=== PATIENT | female | born 1940 | race Caucasian/White ===

== ENCOUNTER 2017-08-25 18:20 | Emergency (ER) | payer MEDICARE, OTHER ==
[2017-08-25] MEDS ORDERED: Ondansetron 4 MG/2 ML SDV IVPUSH ONE (18:43)
[2017-08-25] MEDS ORDERED: Sodium Chloride 0.9% 1,000 ML IV SCH (18:45)
[2017-08-25] MEDS ORDERED: Prochlorperazine 10 MG Tab PO ONE (20:18)
--- NOTE | 2017-08-25 22:19 | ER ---
DATE SEEN: 08/25/2017 ADDENDUM: TIME SEEN: 2003 hours. CHIEF COMPLAINT: Vertigo. HISTORY OF PRESENT ILLNESS: This is a 76-year-old female, who came in because of dizziness, vertigo, and spinning symptoms started today, but has been on and off for several weeks along with some hearing loss and buzzing and tinnitus. Complains of mild headache. I saw her after Dr. Prasad had seen her, given her some fluids and Zofran. Her symptoms had somewhat improved. She did not have any headache when I saw her, chest pain, or shortness of breath. REVIEW OF SYSTEMS: All other systems were negative. PHYSICAL EXAMINATION: GENERAL: When I examined her, she was not in distress. She is comfortable. VITAL SIGNS: Her initial blood pressure was 179/76 and pulse was 77. EARS, NOSE, AND THROAT: Negative. CHEST: Clear. CARDIOVASCULAR: Normal. MENTAL STATUS: Alert. LABORATORY DATA: I reviewed the labs, which included CMP and troponin that were negative. I also reviewed the EKG personally that was normal sinus rhythm and a CT of the head, which I discussed with Dr. Paredes was really nonacute. IMPRESSION: Vertigo. PLAN: The patient will be sent home with Compazine 10 mg t.i.d. p.r.n. with instructions to see Echo Hallman at the clinic tomorrow or Tuesday and line out physical therapy to help with vertigo. She also has an ear, nose, and throat appointment in a month's time. If symptoms should get worse tonight, she should come back. Irlanda was advised to check a blood pressure in the clinic as well to make sure it is coming down. /[id number] ISABELLE/MODL
--- NOTE | 2017-08-26 08:23 | CT ---
INDICATION: Headache all over, more than usual, more dizziness, for two days, has gotten worse. CT HEAD WITHOUT CONTRAST: Serial contiguous 2.5 and 5 mm sections were obtained through the brain without contrast 08/25/2017 - no comparisons. Total exam DLP = 950.31 mGy-cm. Paranasal sinuses and mastoid air cells are well-aerated. The orbits appear to be intact. No cranial abnormality was seen. Calcifications are noted in the left vertebral artery. No shift of midline structures was seen. Ventricles are somewhat prominent, suggesting a mild degree of central atrophy. A tiny low density in the left basal ganglia may represent a small lacunar infarct. Calcification in the left basal ganglia is of questionable significance. In the right parasagittal anterior parietal lobe, there is suggestion of a minimal somewhat linear appearing calcification of questionable significance, possibly related to a tiny incidental meningioma. No definite acute intracranial abnormality was seen - no bleeding site or hematoma was noted. IMPRESSION: 1. No definite acute intracranial abnormality. 2. Possible tiny parasagittal right parietal meningioma. 3. 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 4. Calcification noted left vertebral artery. Report was called to Dr. Prasad at 1948 hours on 08/25/2017. [facility]
== END 2017-08-25 20:32 | disposition home or self-care (01) ==
LOC: FB.ED 18:20
DX: R42 Dizziness and giddiness (principal)
CPT/HCPCS: 36415; 70450; 80053; 82962; 84484; 85025; 96361; 96374; 99284; A9270; J2405; J7030; 99283

== ENCOUNTER 2019-10-03 14:33 | Emergency (ER) | payer MEDICARE ==
[2019-10-03] MEDS ORDERED: hydrALAZINE 20 MG/ML SDV IVPUSH STA (15:15)
[2019-10-03] MEDS ORDERED: Aspirin 81 MG Tab.Chew PO ONE (15:15)
[2019-10-03] MEDS ORDERED: Ondansetron 4 MG/2 ML SDV IVPUSH ONE ×2 (15:49→16:30)
[2019-10-03] MEDS ORDERED: Promethazine 25 MG/ML SDV IM ONE (16:29)
--- NOTE | 2019-10-03 16:29 | CR ---
INDICATION: Chest pain. CHEST ONE VIEW: Portable AP upright view of the chest 10/03/19 revealed the head to be normal in size and shape. The aorta is calcified minimally in the arch area. Overlying snap and EKG leads noted. No definite active infiltrate or effusion was seen. There is slight increased density at the left costophrenic angle of questionable significance - making it difficult to exclude minimal patchy pneumonia in that area. IMPRESSION: 1. No definite acute process, but difficult to exclude minimal patchy pneumonia at the left costophrenic angle. 2. ASD aorta. MTDD
--- NOTE | 2019-10-03 17:36 | EDM.PDOC ---
ED HPI GENERAL MEDICAL PROBLEM - General Chief Complaint: General Stated Complaint: DIZZY,DISORATION,UPSET STOMACH Time Seen by Provider: 10/03/19 14:35 Source of Information: Reports: Patient History Limitations: Reports: No Limitations - History of Present Illness INITIAL COMMENTS - FREE TEXT/NARRATIVE: Patient presented to the ED because of chest pressure for less than 5 minutes. there is no associated fever,chills,cough or cold except for some nasal congestion. She took OTC nasal spray which didn't help much. Generalized Pain Score (Numeric/FACES): 4 - Related Data Allergies Allergy/AdvReac Type Severity Reaction Status Date / Time No Known Allergies Allergy Verified 08/25/17 22:29 Home Meds: Home Meds Lisinopril 20 mg PO DAILY 08/25/17 [History] Simvastatin [Zocor] 20 mg PO BEDTIME 08/25/17 [History] amLODIPine [Norvasc] 2.5 mg PO DAILY 08/25/17 [History] metFORMIN [Glucophage] 1,000 mg PO BIDMEALS 08/25/17 [History] Amoxicillin 875 mg PO BID #20 tablet 10/03/19 [Rx] Fluticasone Propionate [Flonase] 1 spray NASBOTH BID #1 bottle 10/03/19 [Rx] Past Medical History Cardiovascular History: Reports: Heart Murmur, High Cholesterol, Hypertension Endocrine/Metabolic History: Reports: Diabetes, Type II Social & Family History - Family History Family Medical History: Noncontributory - Tobacco Use Smoking Status *Q: Unknown Ever Smoked - Caffeine Use Caffeine Use: Reports: Coffee ED ROS GENERAL - Review of Systems Review Of Systems: See Below Constitutional: Reports: No Symptoms HEENT: Reports: No Symptoms Respiratory: Reports: No Symptoms Cardiovascular: Reports: No Symptoms Endocrine: Reports: No Symptoms GI/Abdominal: Reports: No Symptoms : Reports: No Symptoms Musculoskeletal: Reports: No Symptoms Skin: Reports: No Symptoms Neurological: Reports: No Symptoms Psychiatric: Reports: No Symptoms ED EXAM, GENERAL - Physical Exam Exam: See Below Exam Limited By: No Limitations General Appearance: Alert, No Apparent Distress Eye Exam: Bilateral Eye: PERRL Ears: Normal External Exam, Normal Canal Nose: Normal Inspection, Normal Mucosa Throat/Mouth: Normal Inspection, Normal Lips, Normal Teeth Head: Atraumatic, Normocephalic Neck: Normal Inspection, Supple, Non-Tender, Full Range of Motion Respiratory/Chest: No Respiratory Distress, Lungs Clear, Normal Breath Sounds Cardiovascular: Normal Peripheral Pulses, Regular Rate, Rhythm, No Edema, No Gallop, No JVD, No Murmur GI/Abdominal: Normal Bowel Sounds, Soft, Non-Tender Back Exam: Normal Inspection, Full Range of Motion Extremities: Normal Inspection, Normal Range of Motion, No Pedal Edema, Normal Capillary Refill Neurological: Alert, Oriented, CN II-XII Intact Course - Vital Signs Text/Narrative:: Labs/EKG/CXR was discussed with patient and verbalized full understanding Zofran 4 mg IV x2 doses Phenergan 25 mg IM x1 Hydralazine 20 mg IV x1 for her hypertensive crisis and her BP went down from 197/89 to 130/78 but felt nauseous after the hydralazine was given. Last Recorded V/S: Last Vital Signs Temp 36.5 C 10/03/19 14:33 Pulse 89 10/03/19 15:51 Resp 18 10/03/19 15:51 BP 128/50 L 10/03/19 15:51 Pulse Ox 95 10/03/19 15:51 - Orders/Labs/Meds Orders: Active Orders 24 hr Category Date Time Status EKG Documentation Completion [RC] ASDIRECTED Care 10/03/19 15:14 Active EKG 12 Lead [EK] Routine Ther 10/03/19 15:13 Ordered Labs: Laboratory Tests 10/03/19 10/03/19 10/03/19 Range/Units 15:45 15:45 15:45 WBC 12.3 H (4.5-12.0) X10-3/uL RBC 4.52 (3.23-5.20) x10(6)uL Hgb 13.2 (11.5-15.5) g/dL Hct 40.0 (30.0-51.3) % MCV 88.5 (80-96) fL MCH 29.3 (27.7-33.6) pg MCHC 33.1 (32.2-35.4) g/dL RDW 13.1 (11.5-15.5) % Plt Count 338 (125-369) X10(3)uL MPV 7.1 L (7.4-10.4) fL Neut % (Auto) 56.1 (46-82) % Lymph % (Auto) 33.6 (13-37) % [place] % (Auto) 6.7 (4-12) % Eos % (Auto) 3 (1.0-5.0) % Baso % (Auto) 1 (0-2) % Neut # (Auto) 6.9 (1.6-8.3) # Lymph # (Auto) 4.1 (0.6-5.0) # [place] # (Auto) 0.8 (0.0-1.3) # Eos # (Auto) 0.4 (0.0-0.8) # Baso # (Auto) 0.1 (0.0-0.2) # Sodium 140 (135-145) mmol/L Potassium 3.8 (3.5-5.3) mmol/L Chloride 104 (100-110) mmol/L Carbon Dioxide 22 (21-32) mmol/L BUN 17 (7-18) mg/dL Creatinine 0.8 (0.55-1.02) mg/dL Est Cr Clr Drug Dosing TNP Estimated GFR (MDRD) > 60 (>60) BUN/Creatinine Ratio 21.3 H (9-20) Glucose 141 H (80-116) mg/dL Calcium 9.3 (8.6-10.2) mg/dL Total Bilirubin 0.3 (0.1-1.3) mg/dL AST 21 D (5-25) IU/L ALT 26 D (12-36) U/L Alkaline Phosphatase 89 (56-112) IU/L Troponin I 4.3 (4.0-60.3) pg/mL Total Protein 7.4 (6.0-8.0) g/dL Albumin 4.2 (3.2-4.6) g/dL Globulin 3.2 g/dL Albumin/Globulin Ratio 1.3 Meds: Medications Discontinued Medications Generic Name Dose Route Start Last Admin Trade Name Freq PRN Reason Stop Dose Admin Aspirin 324 mg 10/03/19 15:15 10/03/19 15:27 Aspirin PO 10/03/19 15:16 324 mg ONETIME ONE Administration Hydralazine HCl 20 mg 10/03/19 15:15 10/03/19 15:27 Apresoline IVPUSH 10/03/19 15:16 20 mg NOW STA Administration Ondansetron HCl 4 mg 10/03/19 15:49 10/03/19 15:53 Zofran IVPUSH 10/03/19 15:50 4 mg ONETIME ONE Administration Ondansetron HCl 4 mg 10/03/19 16:30 10/03/19 16:34 Zofran IVPUSH 10/03/19 16:31 4 mg ONETIME ONE Administration Promethazine HCl 25 mg 10/03/19 16:29 10/03/19 16:34 Phenergan IM 10/03/19 16:30 25 mg ONETIME ONE Administration Departure - Departure Time of Disposition: 18:00 Disposition: Home, Self-Care 01 Condition: Good Clinical Impression: Hypertensive crisis, Chest pain, Sinus congestion - Discharge Information Prescriptions: Amoxicillin 875 mg PO BID #20 tablet Fluticasone Propionate [Flonase] 1 spray NASBOTH BID #1 bottle Instructions: Pseudoephedrine extended-release tablets, Sinusitis, Adult, [id number], Hypertension, Adult, [id number] Referrals: Echo Hallman NP [Primary Care Provider] - Forms: ED Department Discharge Additional Instructions: Please read discharge instructions on hypertensive crisis and sinusitis Increase oral fluids Quit using your over the counter nasal spray, it contains pseudoephedrine that can cause chest pain,high BP, dizziness Use Flonase nasal spray, 1 spray in each nose twice daily for 5-7 days Amoxicillin 875 mg twice daily for 10 days Follow up as needed Sepsis Event Note (ED) - Evaluation Sepsis Screening Result: No Definite Risk - Focused Exam Vital Signs: Vital Signs Temp Pulse Resp BP Pulse Ox 10/03/19 15:51 89 18 128/50 L 95 10/03/19 14:33 36.5 C 78 16 157/70 H 98 - My Orders Last 24 Hours: My Active Orders 10/03/19 15:13 EKG 12 Lead [EK] Routine 10/03/19 15:14 EKG Documentation Completion [RC] ASDIRECTED - Assessment/Plan Last 24 Hours: My Active Orders 10/03/19 15:13 EKG 12 Lead [EK] Routine 10/03/19 15:14 EKG Documentation Completion [RC] ASDIRECTED
[2019-10-03] MEDS ORDERED: Amoxicillin 500 MG Cap PO STA (19:17)
== END 2019-10-03 19:43 | disposition home or self-care (01) ==
LOC: FB.ED 14:33
DX: I16.9 Hypertensive crisis, unspecified (principal); R09.81 Nasal congestion; E78.00 Pure hypercholesterolemia, unspecified; I10 Essential (primary) hypertension; E11.9 Type 2 diabetes mellitus without complications; Z79.84 Long term (current) use of oral hypoglycemic drugs; Z79.899 Other long term (current) drug therapy
CPT/HCPCS: 36415; 71045; 80053; 84484; 85025; 93005; 96372; 96374; 96375; 96376; 99285-25; A9270-GY; J0360; J2405; J2550